=== PATIENT | male | born 1995 | race Two or more races ===

== ENCOUNTER 2018-04-08 12:15 | Emergency (ER) | payer BC ==
--- NOTE | 2018-04-08 13:21 | EDPHY ---
H & P Time Seen by Provider: 04/08/18 13:04 HPI/ROS: CHIEF COMPLAINT: Left-sided chest pain HISTORY OF PRESENT ILLNESS: 22-year-old man was seen with substernal chest burning in the middle of January was diagnosed with reflux disease by Gastroenterology. That has resolved and over the last month he has noted occasional irregular heartbeat. He describes 10 sec of his heart racing quite fast happens once or twice a day not associated with dizziness or lightheadedness or syncope. Presents today with the last week having a burning in the left upper outer part of his chest just medial to his armpit. It is not pleuritic or exertional. Does not radiate. Not associated with neck jaw or arm symptoms. No cough or hemoptysis or leg swelling. Symptoms are mild today, he thinks it might have been worsened by a burrito he had last night. No belching or burping. REVIEW OF SYSTEMS: Eye: no change in vision ENT: no sore throat Cardiac: HPI Pulmonary: no cough or SOB or hemoptysis. Abdomen: HPI, no vomiting or diarrhea. No abdominal pain. Musculoskeletal: no back pain Skin: no rash Neuro: no headache Constitutional: no fever : no urinary symptoms A comprehensive 10 point review of systems is otherwise negative aside from elements mentioned in the history of present illness. PAST MEDICAL HISTORY: Negative, no history of DVT or PE. Family history negative for venous thromboembolism or acute coronary syndrome at his age. Social history: no tobacco or alcohol. No recent travel or immobilization, no recent surgery. General Appearance: Alert and conversant, cooperative. Eyes: No scleral icterus. ENT, Mouth: Normal mucous membranes. Respiratory: Normal respiratory effort, breath sounds equal, lungs are clear to auscultation. Cardiovascular: Regular rate and rhythm. Gastrointestinal: Abdomen is soft and non tender. Neurological: Alert, face symmetric, normal motor and sensory in extremities. Skin: Warm and dry, no rashes No zoster or crepitus. Musculoskeletal:No peripheral edema. Legs are symmetric. No calf tenderness. He does have some tenderness to palpation on his chest wall at the area of his left upper chest pain. Psychiatric:Not agitated Emergency Department course/MDM: More likely muscular or inflammatory. Chest x-ray negative, EKG shows right bundle branch block but no ischemic changes. PERC negative for pulmonary embolism. I think ACS would be unlikely. Symptomatic care, I think malignant dysrhythmia is unlikely, cardiology follow- up for outpatient monitoring for his palpitations. Smoking Status: Never smoked Constitutional: Initial Vital Signs Temperature (C) 36.9 C 04/08/18 12:19 Heart Rate 69 04/08/18 12:19 Respiratory Rate 16 04/08/18 12:19 Blood Pressure 129/75 H 04/08/18 12:19 O2 Sat (%) 99 04/08/18 12:19 O2 Delivery Mode Room Air Allergies/Adverse Reactions: No Known Allergies Allergy (Unverified 04/08/18 12:19) Home Medications: Medication Instructions Recorded NK [No Known Home Meds] 04/08/18 Medical Decision Making - Diagnostics EKG Interpretation: 12-lead EKG interpreted by me; official reading is in computer system. My interpretation is sinus rhythm with RVH and rate of 82, otherwise normal intervals and no ischemic changes. Imaging Results: Imaging Impressions Chest X-Ray 04/08/18 13:21 Impression: Normal. Imaging: I viewed and interpreted images myself Differential Diagnosis: Differential diagnosis considered for chest pain including but not limited to myocardial ischemia, aortic dissection, pericarditis, pulmonary embolus, chest wall pain, pleural inflammation and pulmonary infectious causes. Departure - Departure Disposition: Home, Routine, Self-Care Clinical Impression: Palpitations Chest pain Qualifiers: Chest pain type: unspecified Qualified Code(s): R07.9 - Chest pain, unspecified Condition: Good Instructions: Chest Pain (ED), Heart Palpitations (ED) Additional Instructions: Please call the cardiology clinic today or tomorrow to set up outpatient heart monitor for evaluation of your chest palpitations. Referrals: Jose David Metz MD [Medical Doctor] - As per Instructions
--- NOTE | 2018-04-08 13:48 | CPEKG ---
Test Reason : OPEN Blood Pressure : / mmHG Vent. Rate : 082 BPM Atrial Rate : 082 BPM P-R Int : 150 ms QRS Dur : 105 ms QT Int : 362 ms P-R-T Axes : 068 131 058 degrees QTc Int : 423 ms Sinus rhythm Probable right ventricular hypertrophy Confirmed by Tigre Kahn ([id number]) on 04/08/2018 1:48:14 PM Referred By: Confirmed By:Tigre Kahn
[2018-04-08 13:51] VITALS: BP 122/78
== END 2018-04-08 13:50 | disposition home or self-care (01) ==
DX: R07.89 Other chest pain (principal); R00.2 Palpitations; I45.10 Unspecified right bundle-branch block

== ENCOUNTER → 2018-09-03 | Outpatient (CLI) | payer BC | LOC: FIMAGING 07:55 | PROVIDERS: ATTEND Internal Medicine | DX: R09.89 Other specified symptoms and signs involving the circulatory and respiratory systems (principal); R04.2 Hemoptysis; R05 Cough ==

== ENCOUNTER → 2018-10-05 | Outpatient (CLI) | payer BC | LOC: FIMAGING 09:35 | PROVIDERS: ATTEND Internal Medicine Pulmonary Disease | DX: R07.89 Other chest pain (principal); R09.89 Other specified symptoms and signs involving the circulatory and respiratory systems ==